=== PATIENT | female | born 1960 | race Two or more races ===

== ENCOUNTER → 2016-07-18 | Outpatient (CLI) | payer OTHER ==
[~2016-07-18] MED LIST: GABA-585 PO; HYDR25TA9 PO; IBUP-1007 PO; LEVO50TA5 PO; TRAM50TA PO
[2016-07-18 12:09] LABS: BARBITURATES NEG (NEG); BENZODIAZEPINES NEG (NEG); CANNABINOIDS POS (NEG); COCAINE NEG (NEG); METHADONE NEG (NEG); OPIATES NEG (NEG); PHENCYCLIDINE NEG (NEG)
[2016-07-18 12:10] LABS: ETHANOL, URINE NEG (NEG)
--- NOTE | 2016-07-18 14:22 | RAD ---
Indication: Hepatitis C. Technique: Ultrasound the abdomen was performed. No comparison is available. Findings: Visualized pancreas is unremarkable. Aorta is normal caliber. IVC is patent. Liver is normal in size and echotexture without surface nodularity or discrete lesion. Gallbladder is surgically absent. Common bile duct is within normal limits at 4 mm. Kidneys are without hydronephrosis or mass. Spleen is not enlarged. Impression: Normal abdominal ultrasound.
[2016-07-18 23:11] LABS: HEP B SURFACE ABDY Non Reactive (.)
== END | disposition home or self-care (01) ==
LOC: US 10:43
PROVIDERS: ATTEND Internal Medicine Gastroenterology
DX: B19.20 Unspecified viral hepatitis C without hepatic coma (principal)
CPT/HCPCS: 36415; 76700; 86706; 87340; 87341; G0481

== ENCOUNTER → 2016-07-21 | Outpatient (CLI) | payer OTHER | END | disposition home or self-care (01) | LOC: SPEC 14:36 | PROVIDERS: ATTEND Family Medicine | DX: B19.20 Unspecified viral hepatitis C without hepatic coma (principal) ==

== ENCOUNTER 2016-12-01 06:18 | Emergency (ER) | payer OTHER ==
[~2016-12-01] VITALS: Ht 152.4 cm; Wt 72.6 kg
--- NOTE | 2016-12-01 07:22 | PHYS DOC ---
Past Medical History Past Medical History: Fibromyalgia, Hypertension, Hypothyroid, TIA, Other Additional Past Medical Histor: scolisis, neuropathy, chronic head & face pain Past Surgical History: Cholecystectomy, , Hysterectomy, Tubal ligation , Other Additional Past Surgical Histo: partial hysterectomy Alcohol Use: Rarely Drug Use: None Adult General Chief Complaint Chief Complaint: COUGH HPI HPI Patient is a 56 year old female with history of hypertension and hypothyroidism fibromyalgia bronchitis who presents today complaining of a productive cough for 3 days. Patient states she knows she has bronchitis. She states she is a smoker and gets bronchitis often. Patient is also complaining of bilateral eye redness itching and irritation for 1 day. Patient denies any vision loss. Review of Systems Review of Systems Constitutional: see HPI Eyes: eye itching and irritation. HENT: Denies nasal congestion or sore throat [] Respiratory: cough Cardiovascular: No additional information not addressed in HPI [] GI: Denies abdominal pain, nausea, vomiting, bloody stools or diarrhea [] : Denies dysuria or hematuria [] Musculoskeletal: Denies back pain or joint pain [] Integument: Denies rash or skin lesions [] Neurologic: Denies headache, focal weakness or sensory changes [] Endocrine: Denies polyuria or polydipsia [] Current Medications Current Medications Current Medications Medications (Trade) Dose Ordered Sig/Nelida Start Time Stop Time Status Last Admin Dose Admin Albuterol/ Ipratropium (Duoneb) 3 ml 1X ONCE 12/01/16 07:30 12/01/16 07:31 DC 12/01/16 07:37 3 ML Benzonatate (Tessalon Perle) 200 mg 1X ONCE 12/01/16 07:30 12/01/16 07:31 DC 12/01/16 07:37 200 MG Prednisone (Prednisone) 60 mg 1X ONCE 12/01/16 07:30 12/01/16 07:31 DC 12/01/16 07:37 60 MG Allergies Allergies Allergies Coded Allergies Type Severity Reaction Last Updated Verified lisinopril Allergy Severe cough 07/16/13 Yes Physical Exam Physical Exam Constitutional: Well developed, well nourished, no acute distress, non-toxic appearance. [] HENT: Normocephalic, atraumatic, bilateral external ears normal, oropharynx moist, no oral exudates, nose normal. [] Eyes: PERRLA, EOMI, conjunctiva normal, no discharge. [] Neck: Normal range of motion, no tenderness, supple, no stridor. [] Cardiovascular:Heart rate regular rhythm, no murmur [] Lungs & Thorax: Bilateral breath sounds clear to auscultation [] Abdomen: Bowel sounds normal, soft, no tenderness, no masses, no pulsatile masses. [] Skin: Warm, dry, no erythema, no rash. [] Back: No tenderness, no CVA tenderness. [] Extremities: No tenderness, no cyanosis, no clubbing, ROM intact, no edema. [] Neurologic: Alert and oriented X 3, normal motor function, normal sensory function, no focal deficits noted. [] Psychologic: Affect normal, judgement normal, mood normal. [] Current Patient Data Vital Signs Vital Signs Date Time Temp Pulse Resp B/P (MAP) Pulse Ox O2 Delivery O2 Flow Rate FiO2 12/01/16 07:41 98 12/01/16 06:30 99.3 69 16 Room Air 99.3 EKG EKG [] Radiology/Procedures Radiology/Procedures []PROCEDURE: CHEST PA & LATERAL Chest, 2 views, 12/01/2016: History: Cough The heart size and pulmonary vascularity are normal. There is a calcified granuloma in the left base. No acute infiltrates are seen. There is no evidence of pleural fluid. There is a mild thoracolumbar scoliosis. IMPRESSION: No acute cardiopulmonary abnormality is detected. DICTATED and SIGNED BY: DANYELLE DRAKE MD DATE: 12/01/16 0821 CC: TANO HUITRON MD; SUZANNE DUVAL APRN; NON,STAFF ~ Course & Med Decision Making Course & Med Decision Making Pertinent Labs and Imaging studies reviewed. (See chart for details) Patient is in the ED with symptoms consistent of bronchitis. She is a smoker. She was encouraged to consider smoking cessation. She was given a DuoNeb treatment prednisone and Tessalon Perles. She is also complaining of eye irritation. [facility] I also recommended [id number] Zyrtec. Chest x-ray 2 views interpreted by radiologist is negative for any acute findings. Vitals are stable. Patient will be discharged with albuterol inhaler prednisone for 4 more days and Tessalon Perles. She was also given the Z-Reginaldo. Follow-up with her PCP next week. Provided return precautions and discharged in stable condition. Dragon Disclaimer Dragon Disclaimer This electronic medical record was generated, in whole or in part, using a voice recognition dictation system. Departure Departure Impression: Primary Impression: Acute bronchitis Additional Impressions: Allergic conjunctivitis Smoking addiction Disposition: 01 HOME, SELF-CARE Condition: STABLE Referrals: TANO HUITRON MD (PCP) Follow-up with your doctor in one week Patient Instructions: Acute Bronchitis, Allergic Conjunctivitis, Smoking Cessation, Tips For Success Additional Instructions: You were seen for acute bronchitis and allergic conjunctivitis causing eye irritation. Consider smoking cessation. Use the prescribed medicines as ordered. Follow-up with your doctor in the next 1-2 weeks. Scripts Ketotifen Fumarate (ZADITOR) 5 Ml Drops 1 DROP EACHEYE BID, #5 ML 1 Refill Prov: SUZANNE DUVAL APRN 12/01/16 Benzonatate (TESSALON PERLE) 100 Mg Capsule 1 CAP PO TID, #30 CAP Prov: SUZANNE DUVAL APRN 12/01/16 Albuterol Sulfate (Proair Respiclick) 90 Mcg Aer.pow.ba 1 PUFF IH PRN Q6HRS Y for SHORTNESS OF BREATH, #1 INHALER Prov: SUZANNE DUVAL APRN 12/01/16 Prednisone (PREDNISONE) 50 Mg Tablet 1 TAB PO DAILY, #4 TAB Prov: SUZANNE DUVAL APRN 12/01/16 Problem Qualifiers Primary Impression: Acute bronchitis Bronchitis organism: unspecified organism Qualified Codes: J20.9 - Acute bronchitis, unspecified Additional Impressions: Allergic conjunctivitis Laterality: bilateral Qualified Codes: H10.13 - Acute atopic conjunctivitis , bilateral SUZANNE DUVAL APRN Dec 01, 2016 07:22
[2016-12-01] MEDS ORDERED: IPRATRPIUM/ALBUTEROL 0.5/2.5MG 3 ML NEBU. NEB ONE (07:30)
[2016-12-01] MEDS ORDERED: BENZONATATE 100 MG CAPSULE. PO ONE (07:30)
[2016-12-01] MEDS ORDERED: predniSONE 20 MG TABLET PO ONE (07:30)
--- NOTE | 2016-12-01 08:24 | RAD ---
Chest, 2 views, 12/01/2016: History: Cough The heart size and pulmonary vascularity are normal. There is a calcified granuloma in the left base. No acute infiltrates are seen. There is no evidence of pleural fluid. There is a mild thoracolumbar scoliosis. IMPRESSION: No acute cardiopulmonary abnormality is detected.
[2016-12-01] MEDS ORDERED: PRED50TA PO (08:46)
[2016-12-01] MEDS ORDERED: KETO5DRO3 EACHEYE (08:46)
[2016-12-01] MEDS ORDERED: PROAIR RESPICL90 MCG IH (08:46)
[2016-12-01] MEDS ORDERED: BENZ100C PO (08:46)
[2016-12-01 09:00] VITALS: BP 146/76
[2016-12-01] MEDS ORDERED: IBUPROFEN 600 MG TABLET. PO ONE (09:00)
[2016-12-01 11:40] LABS: NEGATIVE OBC STREP NEG; POSITIVE OBC STREP POS
== END 2016-12-01 09:05 | disposition home or self-care (01) ==
LOC: ER 06:18
DX: J20.9 Acute bronchitis, unspecified (principal); F17.210 Nicotine dependence, cigarettes, uncomplicated; H10.13 Acute atopic conjunctivitis, bilateral; I10 Essential (primary) hypertension; E03.9 Hypothyroidism, unspecified; M79.7 Fibromyalgia; Z86.73 Personal history of transient ischemic attack (TIA), and cerebral infarction without residual deficits; Z88.8 Allergy status to other drugs, medicaments and biological substances
CPT/HCPCS: 71020; 87070; 87880; 94250; 94640; 99285; J7512; J7620

== ENCOUNTER 2017-01-17 13:50 | Emergency (ER) | payer OTHER ==
[~2017-01-17] VITALS: Ht 154.9 cm; Wt 72.6 kg
[~2017-01-17 13:50] MED LIST changes: +BENZ100C PO; +KETO5DRO4 EACHEYE; +PRED50TA PO; +PROAIR RESPICL90 MCG IH
[2017-01-17 14:04] VITALS: BP 107/72
[2017-01-17] MEDS ORDERED: PRED20TA PO (15:27)
[2017-01-17] MEDS ORDERED: CYCL10TA2 PO (15:27)
--- NOTE | 2017-01-17 15:28 | PHYS DOC ---
Past Medical History Past Medical History: Fibromyalgia, Hypertension, Hypothyroid, TIA, Other Additional Past Medical Histor: scolisis, neuropathy, chronic head & face pain , irregular heart beat Past Surgical History: Cholecystectomy, , Hysterectomy, Tubal ligation , Other Additional Past Surgical Histo: partial hysterectomy, skull fx Alcohol Use: Rarely Drug Use: None Adult General Chief Complaint Chief Complaint: LOWER EXT PAIN [facility] HPI Patient is a 56 year old female presents emergency department stating that she is having left lower back pain and discomfort down into her left ankle. Patient was able to ambulate into the emergency department with a good steady gait. Patient states she's been taken ibuprofen for the pain and discomfort. She states this is been going on for the last 2 days. She states she has a history of arthritis. She denies any numbness or tingling down to the lower extremity. She denies any recent falls or injuries. Review of Systems Review of Systems Constitutional: Denies fever or chills [] Eyes: Denies change in visual acuity, redness, or eye pain [] HENT: Denies nasal congestion or sore throat [] Respiratory: Denies cough or shortness of breath [] Cardiovascular: No additional information not addressed in HPI [] GI: Denies abdominal pain, nausea, vomiting, bloody stools or diarrhea [] : Denies dysuria or hematuria [] Musculoskeletal: Patient with lower left back pain Integument: Denies rash or skin lesions [] Neurologic: Denies headache, focal weakness or sensory changes [] Endocrine: Denies polyuria or polydipsia [] Allergies Allergies Allergies Coded Allergies Type Severity Reaction Last Updated Verified lisinopril Allergy Severe cough 07/16/13 Yes Physical Exam Physical Exam Constitutional: Well developed, well nourished, no acute distress, non-toxic appearance. [] HENT: Normocephalic, atraumatic, bilateral external ears normal, oropharynx moist, no oral exudates, nose normal. [] Eyes: PERRLA, EOMI, conjunctiva normal, no discharge. [] Neck: Normal range of motion, no tenderness, supple, no stridor. [] Cardiovascular:Heart rate regular rhythm, no murmur [] Lungs & Thorax: Bilateral breath sounds clear to auscultation [] Skin: Warm, dry, no erythema, no rash. [] Back: Patient with tenderness noted in the left lower back to create at the same type pain that she's been having at home. Peripheral pulses 2+ cap refill brisk less than 2 seconds. Patient with full range of motion noted to the left leg. Extremities: No tenderness, no cyanosis, no clubbing, ROM intact, no edema. [] Neurologic: Alert and oriented X 3, normal motor function, normal sensory function, no focal deficits noted. [] Psychologic: Affect normal, judgement normal, mood normal. [] Current Patient Data Vital Signs Vital Signs Date Time Temp Pulse Resp B/P (MAP) Pulse Ox O2 Delivery O2 Flow Rate FiO2 01/17/17 14:04 98.3 59 20 107/72 (84) 100 Room Air 98.3 EKG EKG [] Radiology/Procedures Radiology/Procedures [] Course & Med Decision Making Course & Med Decision Making Pertinent Labs and Imaging studies reviewed. (See chart for details) Patient is able to ambulate with a good steady gait. She'll be discharged home with recommendations to continue with her ibuprofen. She'll be provided with prednisone and Flexeril which she was instructed Flexeril will cause drowsiness do not take any be alert and oriented. Patient agrees with discharge instructions, treatment regimens and follow-up recommendations. Signs symptoms to return back to emergency department as been provided. All questions and concerns been answered at patient's bedside. Patient has requested a work For 2 days. [] Dragon Disclaimer Dragon Disclaimer This electronic medical record was generated, in whole or in part, using a voice recognition dictation system. Departure Departure Impression: Primary Impression: Sciatica Disposition: 01 HOME, SELF-CARE Condition: STABLE Referrals: TANO HUITRON MD (PCP) Patient Instructions: Sciatica, [id number] Additional Instructions: Activity as tolerated. Medication as prescribed. Flexeril will cause drowsiness do not take any be alert and oriented. Ice packs to the areas of discomfort on 20 minutes off 20 minutes several times a day. Follow-up through primary care physician in the next 3-4 days. Return back to emergency prior signs symptoms of become worse. Scripts Prednisone (PREDNISONE) 20 Mg Tablet 40 MG PO DAILY for 7 Days, #14 TAB Prov: LYSSA FREEMAN APRN 01/17/17 Cyclobenzaprine Hcl (CYCLOBENZAPRINE HCL) 10 Mg Tablet 1 TAB PO TID Y for MUSCLE SPASMS, #30 TAB Prov: LYSSA FREEMAN APRN 01/17/17 Problem Qualifiers Primary Impression: Sciatica Laterality: unspecified laterality Qualified Codes: M54.30 - Sciatica, unspecified side LYSSA FREEMAN APRN Jan 17, 2017 15:27
== END 2017-01-17 15:30 | disposition home or self-care (01) ==
LOC: ER 13:50
DX: M54.42 Lumbago with sciatica, left side (principal); M79.7 Fibromyalgia; M19.90 Unspecified osteoarthritis, unspecified site; E03.9 Hypothyroidism, unspecified; G62.9 Polyneuropathy, unspecified; I10 Essential (primary) hypertension; Z88.8 Allergy status to other drugs, medicaments and biological substances; Z86.73 Personal history of transient ischemic attack (TIA), and cerebral infarction without residual deficits
CPT/HCPCS: 99283

== ENCOUNTER 2017-04-13 13:59 | Emergency (ER) | payer OTHER ==
[~2017-04-13 13:59] MED LIST changes: +CYCL10TA2 PO; +PRED20TA PO
[2017-04-13] MEDS ORDERED: DIPHTH,PERTUSS(ACELL),TET TOX 0.5 ML DISP.SYRIN. VAX IM ONE (14:30)
[2017-04-13] MEDS ORDERED: LIDOCAINE 1%/EPI 1:100,000 20 ML VIAL. INJ ONE (14:30)
[2017-04-13] MEDS ORDERED: CEPH-264 PO (16:00)
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
[2017-04-13 16:25] VITALS: BP 179/96
== END 2017-04-13 16:25 | disposition home or self-care (01) ==
LOC: ER 13:59
DX: S51.811A Laceration without foreign body of right forearm, initial encounter (principal); H10.213 Acute toxic conjunctivitis, bilateral; I10 Essential (primary) hypertension; M79.7 Fibromyalgia; E03.9 Hypothyroidism, unspecified; Z86.73 Personal history of transient ischemic attack (TIA), and cerebral infarction without residual deficits; Z88.8 Allergy status to other drugs, medicaments and biological substances; Y28.8XXA Contact with other sharp object, undetermined intent, initial encounter; Y93.89 Activity, other specified; Y99.8 Other external cause status; Y92.89 Other specified places as the place of occurrence of the external cause
CPT/HCPCS: 12004; 90471; 90715; 99283; J3490

== ENCOUNTER 2017-07-06 03:28 | Emergency (ER) | payer OTHER ==
[2017-07-06] MEDS ORDERED: diphenhydrAMINE HCL 25 MG CAPSULE PO (04:18)
[2017-07-06] MEDS: diphenhydrAMINE HCL 25 MG CAPSULE PO (04:21)
[2017-07-06 05:50] LABS: BILIRUBIN,URINE NEGATIVE (NEG); CLARITY,URINE CLEAR; COLOR,URINE YELLOW; GLUCOSE,URINE NEGATIVE (NEG); NITRITE,URINE NEGATIVE (NEG); PROTEIN,URINE NEGATIVE (NEG-TRACE); UROBILINOGEN,URINE 0.2 mg/dL (0.2 mg/dL)
[2017-07-06 06:14] LABS: BACTERIA,URINE MANY /HPF (0-FEW); RBC,URINE 0 /HPF (0-2); SQUAMOUS EPITHELIAL CELL,UR MOD /LPF; WBC,URINE >40 /HPF (0-4)
== END 2017-07-06 07:10 | disposition home or self-care (01) ==
LOC: ER 03:28
DX: I10 Essential (primary) hypertension (principal); E03.9 Hypothyroidism, unspecified; N30.00 Acute cystitis without hematuria; Z86.73 Personal history of transient ischemic attack (TIA), and cerebral infarction without residual deficits; M79.7 Fibromyalgia; G62.9 Polyneuropathy, unspecified; Z90.710 Acquired absence of both cervix and uterus; Z98.51 Tubal ligation status; Z90.49 Acquired absence of other specified parts of digestive tract; Z88.6 Allergy status to analgesic agent
CPT/HCPCS: 81001; 87086; 99284; Q0163

== ENCOUNTER 2017-08-13 00:18 | Emergency (ER) | payer OTHER ==
[2017-08-13] MEDS: MORPHINE SULFATE 4 MG/ML DISP.SYRIN. IM (00:56)
[2017-08-13] MEDS: ONDANSETRON ODT 4 MG TAB.RAPDIS. PO (00:56)
[2017-08-13] MEDS: KETOROLAC 15 MG/ML VIAL. IM (00:56)
== END 2017-08-13 01:30 | disposition home or self-care (01) ==
LOC: ER 00:18
DX: M54.42 Lumbago with sciatica, left side (principal); M54.41 Lumbago with sciatica, right side; M17.0 Bilateral primary osteoarthritis of knee; M79.7 Fibromyalgia; I10 Essential (primary) hypertension; E03.9 Hypothyroidism, unspecified; G89.29 Other chronic pain; Z86.73 Personal history of transient ischemic attack (TIA), and cerebral infarction without residual deficits; Z90.49 Acquired absence of other specified parts of digestive tract; Z90.711 Acquired absence of uterus with remaining cervical stump; Z98.51 Tubal ligation status; Z88.8 Allergy status to other drugs, medicaments and biological substances
CPT/HCPCS: 96372; 99284; J1885; J2270; Q0162

== ENCOUNTER 2017-09-09 12:18 | Emergency (ER) | payer OTHER | END 2017-09-09 12:44 | disposition left against medical advice (07) | LOC: ER 12:50 | DX: Z04.71 Encounter for examination and observation following alleged adult physical abuse (principal); Z53.21 Procedure and treatment not carried out due to patient leaving prior to being seen by health care provider ==

== ENCOUNTER 2017-11-09 14:36 | Emergency (ER) | payer OTHER ==
[2017-11-09 16:30] LABS: ADD MAN DIFF? NO
[2017-11-09 16:32] LABS: BASO % 1 % (0-3); EOS # 0.1 x10^3/uL (0.0-0.7); EOS % 2 % (0-3); HEMATOCRIT 39.4 % (36.0-47.0); HEMOGLOBIN 13.3 g/dL (12.0-15.5); LYMPH # 2.2 x10^3/uL (1.0-4.8); LYMPH % 27 % (24-48); MEAN CORPUSCULAR HEMOGLOBIN 30 pg (25-35); MEAN CORPUSCULAR HGB CONC 34 g/dL (31-37); MEAN CORPUSCULAR VOLUME 87 fL (79-100); MONO # 0.5 x10^3/uL (0.0-1.1); MONO % 6 % (0-9); NEUT # 5.2 x10^3uL (1.8-7.7); NEUT % 65 % (31-73); PLATELET COUNT 282 x10^3/uL (140-400); WHITE BLOOD COUNT 8.1 x10^3/uL (4.0-11.0)
[2017-11-09 16:42] LABS: ANION GAP 1 (6-14); BLOOD UREA NITROGEN 9 mg/dL (7-20); BUN/CREATININE RATIO 10 (6-20); CALCIUM 8.8 mg/dL (8.5-10.1); CARBON DIOXIDE 30 mmol/L (21-32); CHLORIDE 105 mmol/L (98-107); CREATININE 0.9 mg/dL (0.6-1.0); GFR 78.4; GLUCOSE 81 mg/dL (70-99); POTASSIUM 3.3 mmol/L (3.5-5.1); SODIUM 136 mmol/L (136-145)
[2017-11-09 16:48] LABS: ALBUMIN 3.3 g/dL (3.4-5.0); ALK PHOS 78 U/L (46-116); ALT (SGPT) 16 U/L (14-59); AST (SGOT) 11 U/L (15-37); TOTAL BILIRUBIN 0.6 mg/dL (0.2-1.0); TOTAL PROTEIN 6.7 g/dL (6.4-8.2)
[2017-11-09 16:49] LABS: D-DIMER 0.41 ug/mlFEU (0.00-0.50); TROPONINI < 0.017 ng/mL (0.000-0.055)
[2017-11-09 16:53] LABS: NT-PRO BNP 97 pg/mL (0-124)
== END 2017-11-09 18:37 ==
LOC: ER 18:37
DX: J20.9 Acute bronchitis, unspecified (principal); E03.9 Hypothyroidism, unspecified; I10 Essential (primary) hypertension; G89.29 Other chronic pain; F17.200 Nicotine dependence, unspecified, uncomplicated; Z88.8 Allergy status to other drugs, medicaments and biological substances
CPT/HCPCS: 36415; 71045; 80053; 83880; 84484; 85025; 85379; 93005; 99285-25

== ENCOUNTER 2017-11-20 01:59 | Emergency (ER) | payer OTHER | END 2017-11-20 03:23 | disposition home or self-care (01) | LOC: ER 01:59 | DX: T76.21XA Adult sexual abuse, suspected, initial encounter (principal); I10 Essential (primary) hypertension; E03.9 Hypothyroidism, unspecified; Z86.73 Personal history of transient ischemic attack (TIA), and cerebral infarction without residual deficits; Z90.49 Acquired absence of other specified parts of digestive tract; Z98.51 Tubal ligation status; Z90.710 Acquired absence of both cervix and uterus; Z88.8 Allergy status to other drugs, medicaments and biological substances | CPT/HCPCS: 99281 ==

== ENCOUNTER 2018-09-01 19:08 | Emergency (ER) | payer OTHER ==
[~2018-09-01] VITALS: Ht 167.6 cm; Wt 72.6 kg
[~2018-09-01 19:08] MED LIST changes: +CEPH-264 PO; +HYDR-2145 PO; -HYDR25TA9 PO; +NITR100C62 PO; +TRAM-48 PO; +TRIA15OI TP
[2018-09-01 19:36] VITALS: BP 145/75
[2018-09-01] MEDS ORDERED: CYCL5TAB PO (19:56)
--- NOTE | 2018-09-01 19:57 | PHYS DOC ---
Past Medical History Past Medical History: Fibromyalgia, Hypertension, Hypothyroid, TIA, Other Additional Past Medical Histor: scolisis, neuropathy, chronic head & face pain, irregular heart beat Past Surgical History: Cholecystectomy, , Hysterectomy, Tubal ligation, Other Additional Past Surgical Histo: partial hysterectomy, skull fx Alcohol Use: Rarely Drug Use: None Adult General Chief Complaint Chief Complaint: MECHANICAL FALL HPI HPI Patient is a 58 year old -[place] female presents with bilateral wrist, elbow, shoulder, neck and upper and lower back pain after falling from standing. Patient states she tripped and lost balance when walking onto an elevator while at work. Patient states she caught herself with her hands. She denies hitting her head, but does report posterior neck pain. She is not on any blood thinners. Injury occurred approximately 2 hours prior to ED arrival. No medications or therapy sticking prior to him into the emergency department.[] Review of Systems Review of Systems Review symptoms as per history of present illness. All other review symptoms are negative. All other systems were reviewed and found to be within normal limits, except as documented in this note. Allergies Allergies Allergies Coded Allergies Type Severity Reaction Last Updated Verified lisinopril Allergy Severe cough 07/16/13 Yes Physical Exam Physical Exam Constitutional: Well developed, well nourished, no acute distress. [] HENT: Normocephalic, atraumatic, bilateral external ears normal, oropharynx moist, no oral exudates, nose normal. [] Eyes: PERRLA, EOMI, conjunctiva normal. [] Neck: Normal range of motion, no tenderness, supple, no stridor. [] Lungs & Thorax: Bilateral breath sounds clear to auscultation [] Abdomen: Bowel sounds normal, soft, no pain or tenderness reported. [] Skin: Warm, dry, no erythema, no rash. [] Back: No midline step-off, bony tenderness. Diffuse mid lower and upper back soft tissue pain. [] Extremities: Bilateral upper extremities, no deformities, swelling, or bruising. Soft tissue tenderness over both wrists, elbows and shoulders. Full unrestricted range of motion of shoulders, elbows and wrists.[] Neurologic: Alert and oriented X 3, normal motor function, normal sensory function, no focal deficits noted. [] Psychologic: Affect normal. [] Current Patient Data Vital Signs Vital Signs Date Time Temp Pulse Resp B/P (MAP) Pulse Ox O2 Delivery O2 Flow Rate FiO2 09/01/18 19:36 98.3 65 16 145/75 (98) 99 Room Air 98.3 EKG EKG [] Radiology/Procedures Radiology/Procedures [] Course & Med Decision Making Course & Med Decision Making Pertinent Labs and Imaging studies reviewed. (See chart for details) [No imaging studies indicated this time. Recommend rest, elevation, compression and. 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 Departure Departure Impression: Primary Impression: Sprain and strain of left wrist Additional Impressions: Sprain and strain of right wrist Thoracic back sprain Disposition: 01 HOME, SELF-CARE Condition: GOOD Referrals: TANO HUITRON MD (PCP) Patient Instructions: Sprain Additional Instructions: Please rest, elevate painful extremities and joints. Take ibuprofen 3 times daily and Flexeril as needed for additional relief. Contact your work comp advisor for work comp referral and follow up. Limit limb use to activity as tolerated. Scripts Cyclobenzaprine Hcl (CYCLOBENZAPRINE HCL) 5 Mg Tablet 1 TAB PO QHS, #15 TAB Prov: RAFAEL AMBROCIO DO 09/01/18 Problem Qualifiers RAFAEL AMBROCIO DO Sep 01, 2018 19:57
[2018-09-01] MEDS ORDERED: HYDROcodone/APAP 5/325MG 1 TAB TABLET PO ONE (20:15)
[2018-09-01] MEDS ORDERED: IBUPROFEN 400 MG TABLET. PO ONE (20:15)
== END 2018-09-01 20:00 | disposition home or self-care (01) ==
LOC: ER 19:08
DX: S23.3XXA Sprain of ligaments of thoracic spine, initial encounter (principal); S63.502A Unspecified sprain of left wrist, initial encounter; S63.501A Unspecified sprain of right wrist, initial encounter; S09.90XA Unspecified injury of head, initial encounter; M54.5 Low back pain; M54.2 Cervicalgia; G89.29 Other chronic pain; E03.9 Hypothyroidism, unspecified; I10 Essential (primary) hypertension; Z86.73 Personal history of transient ischemic attack (TIA), and cerebral infarction without residual deficits; Z90.49 Acquired absence of other specified parts of digestive tract; Z90.711 Acquired absence of uterus with remaining cervical stump; Z98.51 Tubal ligation status; Z88.8 Allergy status to other drugs, medicaments and biological substances; W01.0XXA Fall on same level from slipping, tripping and stumbling without subsequent striking against object, initial encounter; Y93.01 Activity, walking, marching and hiking; Y92.69 Other specified industrial and construction area as the place of occurrence of the external cause; Y99.0 Civilian activity done for income or pay
CPT/HCPCS: 99284

== ENCOUNTER 2021-02-22 12:28 | Emergency (ER) | payer OTHER, MEDICAID ==
[~2021-02-22] VITALS: Ht 152.4 cm; Wt 75.9 kg
[~2021-02-22 12:28] MED LIST changes: +CYCL5TAB PO
--- NOTE | 2021-02-22 13:37 | PHYS DOC ---
Past Medical History Past Medical History: Fibromyalgia, Hypertension, Hypothyroid, TIA, Other Additional Past Medical Histor: scolisis, neuropathy, chronic head & face pain, irregular heart beat Past Surgical History: Cholecystectomy, , Hysterectomy, Tubal ligation, Other Additional Past Surgical Histo: partial hysterectomy, skull fx Smoking Status: Current Every Day Smoker Alcohol Use: Rarely Drug Use: None General Adult EDM: Chief Complaint: HYPERTENSION HPI: HPI: Patient is a 60 year old female who is here for evaluation of elevated blood pressure readings. She reports that her home health nurse came and noticed her blood pressure was elevated in the 170s systolic, and told her to go to the ER. The patient denies any chest pain, dyspnea, headache, dizziness, syncope, denies new weakness. 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 No changes in weakness today. Her blood pressure is already decreased here. She initially reported that she takes all of her medications as directed. She was admitted here to the hospital for several weeks, then went to rehab for 8 days and has been back home for only a few days. This was her first visit with the home health nurse. The patient expresses frustration because the home health nurse was placed to help her arrange refilling her regular medications. Also the p atient had a scheduled appointment with her primary care physician this morning that she just did not go to. The patient's son stays at home with her and helps to care for her. There was some initial report by EMS that the patient son had thought that her weakness was worse, but this turns out not to be the case. The patient is unable to articulate any details of her medications or doses. Review of Systems: Review of Systems: Constitutional: Denies fever or chills. [] Eyes: Denies change in visual acuity. [] HENT: Denies nasal congestion or sore throat. [] Respiratory: Denies cough or shortness of breath. [] Cardiovascular: Denies chest pain or edema. [] GI: Denies abdominal pain, nausea, vomiting, bloody stools or diarrhea. [] : Denies urinary symptoms. Musculoskeletal: Denies back pain or joint pain. [] Integument: Denies rash. [] Neurologic: Denies headache, dizziness, vertigo. Left lower extremity weakness and milder left upper extremity weakness are present and chronic from CVA and unchanged. No new sensory changes. No syncope. Psychiatric: Admits to anxiety regarding her recent medical illnesses. Heart Score: C/O Chest Pain: No Risk Factors: Risk Factors: DM, Current or recent (<one month) smoker, HTN, HLP, family history of CAD, obesity. Risk Scores: Score 0 - 3: 2.5% MACE over next 6 weeks - Discharge Home Score 4 - 6: 20.3% MACE over next 6 weeks - Admit for Clinical Observation Score 7 - 10: 72.7% MACE over next 6 weeks - Early Invasive Strategies Allergies: Allergies: Allergies Coded Allergies Type Severity Reaction Last Updated Verified lisinopril Allergy Severe cough 07/16/13 Yes Physical Exam: PE: Constitutional: Well developed, well nourished, no acute distress, non-toxic appearance. [] HENT: Normocephalic, atraumatic, bilateral external ears normal, oropharynx is patent and clear, mucous membranes are moist. Eyes: PERRL, EOMI, conjunctiva normal, no discharge. [] Neck: Normal range of motion, no tenderness, supple, no stridor. [] Cardiovascular:Heart rate regular rhythm, +2 radial and dorsalis pedis pulses bilaterally. Lungs & Thorax: Bilateral breath sounds clear to auscultation [] Abdomen: Bowel sounds normal, soft, no tenderness, no masses, no pulsatile masses. [] Skin: Warm, dry, no erythema, no rash. [] Back: No tenderness, no CVA tenderness. [] Extremities: No tenderness, no cyanosis, no clubbing, ROM intact, no edema. [] Neurologic: Wake, alert, oriented x3, cranial nerves II through XII grossly intact. Speech is fluent. 5 out of 5 motor strength right upper and right lower extremity. Her left lower extremity has minimal resistance against gravity and falls to the bed immediately, this is new baseline for her. Equal construction controller strength bilateral upper extremities. She is able to hold her left upper extremity against gravity for several seconds this is also her new baseline. Psychologic: Highly anxious but cooperative. Current Patient Data: Labs: Laboratory Tests Test 02/22/21 13:21 Glucose (Fingerstick) 117 mg/dL (70-99) H EKG: EKG: EKG is interpreted at 1323 Rhythm: Sinus bradycardia Rate: 49 bpm Midway: Normal No STEMI Radiology/Procedures: Radiology/Procedures: IMAGING REPORT Signed PATIENT: QUE SON ACCOUNT: [id number] : 1960 LOCATION: ER AGE: 60 SEX: F EXAM STATUS: REG ER ORD. PHYSICIAN: JOANA MITCHELL DO REASON: s/p CVA, headache PROCEDURE: CT HEAD WO CONTRAST CT Head W/O Contrast: History: Status post CVA, headache, not a stroke protocol Comparison: none Axial images were obtained without contrast. There is mild diffuse atrophy. There is no mass effect, extraaxial fluid co llections or hydrocephalus. There is right frontal parasagittal encephalomalacia. There is no focal loss of javed-white matter distinction to suggest acute ischemia, i.e. stroke. Impression: 1. Mild atrophy is advanced for the patient's age. 2. Old right frontal lobe stroke. 3. No acute findings. End impression PQRS Compliance Statement: One or more of the following individualized dose reduction techniques were utilized for this examination: 1. Automated exposure control 2. Adjustment of the mA and/or kV according to patient size 3. Use of iterative reconstruction technique Electronically signed by: Светлана Winston III, MD (02/22/2021 2:22 PM) [facility] DICTATED and SIGNED BY: СВЕТЛАНА WINSTON III, MD DATE: 02/22/21 [id number] Course & Med Decision Making: Course & Med Decision Making The patient's blood pressure is stable here. She remains asymptomatic of any acute symptoms, no acute changes on CT. I have discussed the findings, differential diagnosis and plan of care with her. I told her to contact her primary care physician today or first thing in the morning to discuss medication refills. In addition, I told her to discuss this further with her home health care team as well. No indication for altering medications at this time, her blood pressure has already decreased without any pharmaceutical intervention. No indication for admission, further invasive exams or imaging in the emergency department today. Return precautions are given. Dragon Disclaimer: Dragon Disclaimer: This electronic medical record was generated, in whole or in part, using a voice recognition dictation system. Departure Departure Impression: Primary Impression: Chronic hypertension Disposition: HOME / SELF CARE / HOMELESS Condition: STABLE Referrals: TANO HUITRON MD (PCP) Patient Instructions: Hypertension Additional Instructions: Continue taking your prescribed medications as directed. Please contact your primary care physician's office today or first thing in the morning to arrange for follow-up since you missed your appointment today. Please discuss with your primary care doctor your concerns for being at home, and if you need extra help, extra rehab services, they need to help arrange that for you. Please also reach out to your home health nursing staff to see if they can help you as well. Return to the ER for any acute injury or trauma, chest severe chest pain, severe shortness of breath, uncontrolled vomiting with dehydration, fever of 100.4 or higher or any other concerns. JOANA MITCHELL DO Feb 22, 2021 13:37
--- NOTE | 2021-02-22 14:25 | RAD ---
CT Head W/O Contrast: History: Status post CVA, headache, not a stroke protocol Comparison: none Axial images were obtained without contrast. There is mild diffuse atrophy. There is no mass effect, extraaxial fluid collections or hydrocephalu s. There is right frontal parasagittal encephalomalacia. There is no focal loss of javed-white matter distinction to suggest acute ischemia, i.e. stroke. Impression: 1. Mild atrophy is advanced for the patient's age. 2. Old right frontal lobe stroke. 3. No acute findings. End impression PQRS Compliance Statement: One or more of the following individualized dose reduction techniques were utilized for this examinat ion: 1. Automated exposure control 2. Adjustment of the mA and/or kV according to patient size 3. Use of iterative reconstruction technique Electronically signed by: Job Land III, MD (02/22/2021 2:22 PM) [facility]
[2021-02-22 14:47] LABS: BASO # 0.1 x10^3/uL (0.0-0.2); BASO % 1 % (0-3); EOS # 0.4 x10^3/uL (0.0-0.7); EOS % 4 % (0-3); HEMATOCRIT 41.8 % (36.0-47.0); LYMPH # 2.1 x10^3/uL (1.0-4.8); LYMPH % 22 % (24-48); MEAN CORPUSCULAR HEMOGLOBIN 29 pg (25-35); MEAN CORPUSCULAR HGB CONC 34 g/dL (31-37); MEAN CORPUSCULAR VOLUME 88 fL (79-100); MONO # 0.7 x10^3/uL (0.0-1.1); MONO % 8 % (0-9); NEUT # 6.3 x10^3/uL (1.8-7.7); NEUT % 66 % (31-73); PLATELET COUNT 333 x10^3/uL (140-400); RED BLOOD COUNT 4.78 x10^6/uL (3.50-5.40); WHITE BLOOD COUNT 9.5 x10^3/uL (4.0-11.0)
[2021-02-22 14:51] LABS: BILIRUBIN,URINE NEGATIVE (NEG); CLARITY,URINE CLOUDY; COLOR,URINE YELLOW; NITRITE,URINE NEGATIVE (NEG); PROTEIN,URINE NEGATIVE (NEG-TRACE)
[2021-02-22 15:00] LABS: AMORPHOUS SEDIMENT,UR PRESENT /HPF; BACTERIA,URINE MODERATE /HPF (0-FEW); RBC,URINE 0 /HPF (0-2)
[2021-02-22 15:09] LABS: CALCIUM 9.4 mg/dL (8.5-10.1); CREATININE 0.9 mg/dL (0.6-1.0); GFR 77.5; POTASSIUM 3.5 mmol/L (3.5-5.1)
[2021-02-22 16:12] VITALS: BP 148/79
== END 2021-02-22 16:35 | disposition home or self-care (01) ==
LOC: ER 12:28
DX: I10 Essential (primary) hypertension (principal); E03.9 Hypothyroidism, unspecified; Z86.73 Personal history of transient ischemic attack (TIA), and cerebral infarction without residual deficits; F17.200 Nicotine dependence, unspecified, uncomplicated; Z88.6 Allergy status to analgesic agent
CPT/HCPCS: 36415; 70450; 80048; 81001; 82962; 85025; 87086; 99285-25